=== PATIENT | male | born 1975 | race Hispanic/Latino ===

== ENCOUNTER 2017-07-08 14:20 | Outpatient (CLI) | payer MEDICARE | END 2017-07-08 14:21 | disposition home or self-care (01) | LOC: BICMRI 14:20 | PROVIDERS: ATTEND Specialist | DX: M43.16 Spondylolisthesis, lumbar region (principal); M25.512 Pain in left shoulder; M19.012 Primary osteoarthritis, left shoulder; M75.102 Unspecified rotator cuff tear or rupture of left shoulder, not specified as traumatic; M43.17 Spondylolisthesis, lumbosacral region; M99.83 Other biomechanical lesions of lumbar region | CPT/HCPCS: 72110; 72148 ==

== ENCOUNTER 2020-07-26 08:06 | Outpatient (CLI) | payer MEDICARE ==
[2020-07-26 08:43] LABS: Estimated GFR-MDRD - POC Greater than 90
[2020-07-26] MEDS ORDERED: Magnevist 469MG/ML 20 ML VIAL ONE (09:09)
== END 2020-07-26 08:07 | disposition home or self-care (01) ==
LOC: BICMRI 08:06
PROVIDERS: ATTEND Internal Medicine
DX: Z12.11 Encounter for screening for malignant neoplasm of colon (principal); K21.9 Gastro-esophageal reflux disease without esophagitis; K76.9 Liver disease, unspecified; R74.8 Abnormal levels of other serum enzymes; K76.0 Fatty (change of) liver, not elsewhere classified
CPT/HCPCS: 74183; 82565; A9579

== ENCOUNTER 2020-12-19 12:02 | Outpatient (CLI) | payer MEDICARE | END 2020-12-19 12:03 | disposition home or self-care (01) | LOC: BICRAD 12:02 | PROVIDERS: ATTEND Internal Medicine Rheumatology | DX: M54.50 Low back pain, unspecified (principal); M43.17 Spondylolisthesis, lumbosacral region | CPT/HCPCS: 72110 ==

== ENCOUNTER 2021-06-26 10:20 | Outpatient (CLI) | payer MEDICARE | END 2021-06-26 10:21 | disposition home or self-care (01) | LOC: TBSIIMAG 10:20 | PROVIDERS: ATTEND Neurological Surgery | DX: M43.16 Spondylolisthesis, lumbar region (principal); M48.062 Spinal stenosis, lumbar region with neurogenic claudication; M43.17 Spondylolisthesis, lumbosacral region | CPT/HCPCS: 72148 ==

== ENCOUNTER 2024-12-15 14:44 | Outpatient (CLI) | payer OTHER ==
[~2024-12-15 14:44] MED LIST: Iopamidol 370 76% 100 ML VIAL ONE
== END 2024-12-15 14:45 | disposition home or self-care (01) ==
LOC: CT 14:44
PROVIDERS: ATTEND Nurse Practitioner Family
DX: R22.0 Localized swelling, mass and lump, head (principal); K09.1 Developmental (nonodontogenic) cysts of oral region
CPT/HCPCS: 70487; Q9967

== ENCOUNTER 2025-03-02 15:03 | Outpatient (CLI) | payer OTHER | END 2025-03-02 15:04 | disposition home or self-care (01) | LOC: BICRAD 15:03 | PROVIDERS: ATTEND Nurse Practitioner Family | DX: M43.16 Spondylolisthesis, lumbar region (principal); M43.17 Spondylolisthesis, lumbosacral region | CPT/HCPCS: 72100 ==